=== PATIENT | female | born 1995 | race Caucasian/White ===

== ENCOUNTER 2019-10-26 15:52 | Outpatient (CLI) | payer OTHER ==
[2019-10-26 16:15] LABS: APPEARANCE,URINE CLOUDY; BILIRUBIN,URINE NEGATIVE (NEGATIVE); COLOR,URINE YELLOW; GLUCOSE, URINE NEGATIVE (NEGATIVE); KETONES,URINE NEGATIVE (NEGATIVE); LEUKOCYTE ESTERASE,URINE LARGE (NEGATIVE); NITRITE,URINE NEGATIVE (NEGATIVE); PROTEIN,URINE 30 mg/dL (NEGATIVE); URINE SPECIFIC GRAVITY 1.013; UROBILINOGEN,URINE NEGATIVE mg/dL (<2.0)
[2019-10-26 16:30] LABS: URINE AMPHETAMINES SCREEN NEGATIVE; URINE BARBITURATES SCREEN NEGATIVE; URINE BENZODIAZEPINES SCREEN NEGATIVE; URINE COCAINE SCREEN NEGATIVE; URINE MARIJUANA (THC) SCREEN NEGATIVE; URINE METHADONE SCREEN NEGATIVE; URINE PHENCYCLIDINE SCREEN NEGATIVE
--- NOTE | 2019-10-26 16:37 | Non Stress Test Report ---
Non Stress Test Datetime Report Generated by CPN: 10/26/2019 16:37 DEMOGRAPHIC EGA NST: 37.6 MONITORING Monitor Explained: Monitor Explained; Test Explained; Patient Verbalized Understanding Time on Monitor: 10/26/2019 16:05 Time off Monitor: 10/26/2019 16:25 NST Duration: 20 NST INTERVENTIONS NST Interventions: PO Hydration Physician Notified NST: J Salazar CNM BABY A: [id number] BABY A Movement : Present Contraction Frequency : 0 FHR Baseline : 130 Accelerations : 15X15 Decelerations : None Variability : Moderate 6-25bpm NST Review: Meets Criteria for Reactive NST NST Review and Verified By : Alesha Celeste RN NST Results: Reactive NST REPORT Report Trigger: Send Report
== END 2019-10-26 16:46 | disposition home or self-care (01) ==
LOC: LC 15:52
PROVIDERS: ATTEND Obstetrics & Gynecology
PROC: 4A1HXCZ Monitoring of Products of Conception, Cardiac Rate, External Approach (ICD-10-PCS; principal; 2019-10-26)
DX: O36.8130 Decreased fetal movements, third trimester, not applicable or unspecified (principal); Z3A.37 37 weeks gestation of pregnancy
CPT/HCPCS: 59025; 80307; 81005

== ENCOUNTER 2019-11-16 18:29 | Inpatient (IN) | payer OTHER ==
[2019-11-16] MEDS ORDERED: RINGERS SOLUTION,LACTATED 1,000 ML IV PRN ×2 (19:48→19:52)
[2019-11-16] MEDS ORDERED: DINOPROSTONE 10 MG VAGINAL INSERT.SR PV PRN ×2 (19:48→19:52)
[2019-11-16] MEDS ORDERED: RINGERS SOLUTION,LACTATED 300 ML IV ONE ×2 (19:48→19:52)
[2019-11-16] MEDS ORDERED: OXYTOCIN/NORMAL SALINE 1,000 ML IV PRN (19:48)
[2019-11-16] MEDS ORDERED: DINOPROSTONE 10 MG VAGINAL INSERT.SR ONE (19:52)
[2019-11-16] MEDS ORDERED: OXYTOCIN/NORMAL SALINE 20 UNIT/1,000 ML RTUINJ IV PRN (19:52)
--- NOTE | 2019-11-16 20:04 | Admission Physical ---
Datetime Report Generated by CPN: 11/16/2019 20:04 CURRENT ADMISSION Chief Complaint: Scheduled Induction of Labor Indication for Induction: Post Dates Admit Impression : Term, Intrauterine Admit Plan: Admit to Unit; Initiate Labor Induction Protocol ALLERGIES Medication Allergies: No Medication Allergies: No Known Allergies (11/16/2019) Latex: No Latex Allergies Environmental Allergies: Bees- Anaphylaxis OBSTETRICAL HISTORY EDC: 11/10/2019 00:00 : 1 Para: 0 Term: 0 : 0 SAB: 0 IAB: 0 Ectopic: 0 Livin Cesareans: 0 VBACs: 0 Multiple Births: 0 Gestational Diabetes: No Rh Sensitization: No Incompetent Cervix: No SAIRA: No Infertility: No ART Treatment: No Uterine Anomaly: No IUGR: No Hx Previous C/S: No Macrosomia: No Hx Loss/Stillborn: No PIH: No Hx : No Placenta Previa/Abruption: No Depression/PP Depression: No PTL/PROM: No Post Hemorrhage: No Current Procedures: Ultrasound Obstetrical History Comments: G-1 no complaints SEE RECORDS Alcohol: No Marijuana : No Cocaine: No Other Illicit Drugs: No Cigarettes: Never Smoker. [id number] MEDICAL HISTORY Diabetes: No Blood Transfusion: No Pulmonary Disease (Asthma, TB): No Breast Disease: No Hypertension: No Prison Psychiatrist Surgery: No Heart Disease: No Hosp/Surgery: Yes Autoimmune Disorder: No Anesthetic Complications: No Kidney Disease: No Abnormal Pap Smear: No Neuro/Epilepsy: No Psychiatric Disorders: No Other Medical Diseases: No Hepatitis/Liver Disease: No Significant Family History: No Varicosities/Phlebitis: No Trauma/Violence : No Thyroid Dysfunction: No Medical History Comments: Appendectomy- february 2018 INFECTIOUS HISTORY Gonorrhea: No Genital Herpes: No Chlamydia: No Tuberculosis: No Syphilis: No Hepatitis: No HIV/AIDS Exposure: No Rash or Viral Illness: No HPV: No PHYSICAL EXAM General: Normal HEENT: Normal Neurologic: Normal Thyroid: Normal Heart: Normal Lungs: Normal Breast: Deferred Back: Normal Abdomen: Normal Genitourinary Exam: Normal Extremities: Normal DTRs: Normal Pelvic Type: Adequate Vital Signs: Reviewed MEMBRANES Pooling: Negative Membranes: Intact FETUS A EGA: 40.6 Monitoring: External US FHR- Baseline: 130 Variability: Minimal - Undetectable to <=5bpm Decelerations: None FHR Category: Category I Presentation: Vertex PLANS FOR LABOR AND DELIVERY Labor and Delivery: None Pain Management: Medications Feeding Preference: Breast Benefit of Breast Feed Discussed: Yes Circumcision: Yes INFORMED CONSENT Signature: with User ID: [email or web address]
[2019-11-16 21:26] LABS: APPEARANCE,URINE SLIGHTLY-CLOUDY; BILIRUBIN,URINE NEGATIVE (NEGATIVE); COLOR,URINE YELLOW; GLUCOSE, URINE NEGATIVE (NEGATIVE); KETONES,URINE NEGATIVE (NEGATIVE); LEUKOCYTE ESTERASE,URINE MODERATE (NEGATIVE); NITRITE,URINE NEGATIVE (NEGATIVE); PROTEIN,URINE NEGATIVE (NEGATIVE); URINE SPECIFIC GRAVITY 1.015; UROBILINOGEN,URINE NEGATIVE mg/dL (<2.0)
[2019-11-16 21:42] LABS: HEMOGLOBIN 10.8 g/dL (12.0-15.5); MEAN CORPUSCULAR HEMOGLOBIN 33.9 pg (27.0-33.4); MEAN CORPUSCULAR HGB CONC 34.9 g/dL (32.0-36.0); MEAN CORPUSCULAR VOLUME 97 fl (80-97); PLATELET COUNT 177 10^3/uL (150-450); RED BLOOD COUNT 3.19 10^6/uL (3.72-5.28); RED CELL DISTRIBUTION WIDTH 14.5 % (11.5-14.0); WHITE BLOOD COUNT 8.2 10^3/uL (4.0-10.5)
[2019-11-16 21:46] LABS: URINE AMPHETAMINES SCREEN NEGATIVE; URINE BARBITURATES SCREEN NEGATIVE; URINE BENZODIAZEPINES SCREEN NEGATIVE; URINE COCAINE SCREEN NEGATIVE; URINE MARIJUANA (THC) SCREEN NEGATIVE; URINE METHADONE SCREEN NEGATIVE; URINE PHENCYCLIDINE SCREEN NEGATIVE
[2019-11-16 22:06] LABS: ABSOLUTE LYMPHOCYTES# (MANUAL) 1.5 10^3/uL (0.5-4.7); ABSOLUTE MONOCYTES # (MANUAL) 0.4 10^3/uL (0.1-1.4); BASOPHILS % (MANUAL) 0 % (0-2); EOSINOPHILS % (MANUAL) 2 % (0-6); LYMPHOCYTES % (MANUAL) 18 % (13-45); MONOCYTES % (MANUAL) 5 % (3-13); SEGMENTED NEUTROPHILS % (MAN) 75 % (42-78); TOTAL CELLS COUNTED 100
[2019-11-16 22:08] LABS: ANISOCYTOSIS SLIGHT; OVALOCYTES SLIGHT; PLATELET COMMENT ADEQUATE; POIKILOCYTOSIS SLIGHT
[2019-11-16] MEDS ORDERED: ZOLPIDEM TARTRATE 5 MG TABLET ONE (23:46)
[2019-11-17] MEDS ORDERED: OXYTOCIN 10 UNIT/ML VIAL ONE (10:10)
[2019-11-17] MEDS ORDERED: LIDOCAINE 1% INJ-PF (10 MG/ML) 30 ML SDV ONE (10:10)
[2019-11-17] MEDS ORDERED: MISOPROSTOL 0.2 MG TABLET ONE (10:10)
[2019-11-17] MEDS ORDERED: OXYTOCIN/NORMAL SALINE 20 UNIT/1,000 ML RTUINJ ONE (10:11)
[2019-11-17] MEDS ORDERED: PROMETHAZINE HCL INJ 25 MG/1 ML VIAL ONE (12:15)
[2019-11-17] MEDS ORDERED: FENTANYL CITRATE INJ/PF 100 MCG/2 ML AMPUL ONE ×2 (12:15→16:56)
[2019-11-17] MEDS ORDERED: FENTANYL CITRATE INJ/PF 100 MCG/2 ML AMPUL IV ONE (12:16)
[2019-11-17] MEDS ORDERED: PROMETHAZINE HCL INJ 25 MG/1 ML VIAL IV ONE (12:16)
[2019-11-17] MEDS ORDERED: BUPIVACAINE HCL 0.25 % INJ/PF (2.5 MG/1 ML) 30 ML VIAL ONE (16:52)
[2019-11-17] MEDS ORDERED: FENTANYL/BUPIVACAINE/NS/PF 300 MCG/150 ML RTUINJ EPI ONE (16:52)
[2019-11-17] MEDS ORDERED: EPHEDRINE SULFATE INJ 50 MG/1 ML AMPULE ONE (16:52)
[2019-11-18] MEDS ORDERED: FENTANYL CITRATE INJ/PF 100 MCG/2 ML AMPUL ONE (00:46)
[2019-11-18] MEDS ORDERED: LIDOCAINE 2%/EPINEPHRINE INJ 20 ML VIAL ONE (00:46)
[2019-11-18] MEDS ORDERED: LIDOCAINE 1.5%/EPINEPHRINE INJ 5 ML AMP ONE ×2 (00:47→00:48)
[2019-11-18] MEDS ORDERED: ACETAMINOPHEN 325 MG TABLET ONE (01:23)
[2019-11-18] MEDS ORDERED: ACETAMINOPHEN 325 MG TABLET PO PRN (01:48)
[2019-11-18] MEDS ORDERED: OXYTOCIN/NORMAL SALINE 20 UNIT/1,000 ML RTUINJ ONE (06:03)
[2019-11-18] MEDS ORDERED: OXYTOCIN/NORMAL SALINE 20 UNIT/1,000 ML RTUINJ IV PRN (06:51)
[2019-11-18] MEDS ORDERED: BENZOCAINE/MENTHOL AEROSOL SPRAY 56 ML TOP PRN (06:51)
[2019-11-18] MEDS ORDERED: ACETAMINOPHEN WITH CODEINE #3 TABLET PO PRN ×2 (06:51)
[2019-11-18] MEDS ORDERED: DIBUCAINE 1% OINTMENT 28 GM TP PRN (06:51)
[2019-11-18] MEDS ORDERED: ZOLPIDEM TARTRATE 5 MG TABLET PO PRN (06:51)
[2019-11-18] MEDS ORDERED: DIPH/PERTUSS(ACELL)/TETANUS VAC/PF 0.5 ML SYR (>=10YO) IM PRN (06:51)
[2019-11-18] MEDS ORDERED: IBUPROFEN 800 MG TABLET ONE (08:41)
[2019-11-18] MEDS: PRENATAL VITAMIN W DHA CAPSULE PO SCH (10:30)
[2019-11-18] MEDS: DOCUSATE SODIUM 100 MG CAPSULE PO SCH ×2 (10:30→17:41)
[2019-11-18] MEDS: SENNOSIDES/DOCUSATE 8.6-50 MG 1 EACH TABLET PO SCH (10:30)
[2019-11-18] MEDS: FERROUS SULFATE 325 MG TABLET PO SCH ×2 (10:30→17:41)
[2019-11-18] MEDS: IBUPROFEN 800 MG TABLET PO SCH ×2 (14:06→21:57)
[2019-11-19] MEDS: IBUPROFEN 800 MG TABLET PO SCH ×3 (06:13→21:20)
[2019-11-19 06:46] LABS: HEMOGLOBIN 9.1 g/dL (12.0-15.5); MEAN CORPUSCULAR HEMOGLOBIN 34.3 pg (27.0-33.4); MEAN CORPUSCULAR VOLUME 98 fl (80-97); PLATELET COUNT 135 10^3/uL (150-450); RED BLOOD COUNT 2.65 10^6/uL (3.72-5.28); RED CELL DISTRIBUTION WIDTH 14.9 % (11.5-14.0)
[2019-11-19 06:50] LABS: WHITE BLOOD COUNT 18.2 10^3/uL (4.0-10.5)
[2019-11-19] MEDS ORDERED: IRON SUCROSE COMPLEX INJ/PF 100 MG/5 ML SDV IV ONE ×2 (09:00→10:00)
[2019-11-19] MEDS: SENNOSIDES/DOCUSATE 8.6-50 MG 1 EACH TABLET PO SCH (09:21)
[2019-11-19] MEDS: PRENATAL VITAMIN W DHA CAPSULE PO SCH (09:21)
[2019-11-19] MEDS: FERROUS SULFATE 325 MG TABLET PO SCH ×2 (09:21→18:01)
[2019-11-19] MEDS: DOCUSATE SODIUM 100 MG CAPSULE PO SCH ×2 (09:21→18:01)
--- NOTE | 2019-11-19 09:36 | PDOC PROGRESS REPORT ---
Subjective-OB Progress Note for:: 11/19/19 Subjective: Pt doing well, PPD#1. She reports light bleeding, reg diet and voiding without difficulty. No concerns at this time. Physical Exam (OB) Vital Signs: Temp Pulse Resp BP Pulse Ox 97.7 F 65 16 131/65 H 98 11/19/19 08:04 11/19/19 08:04 11/19/19 08:04 11/19/19 08:04 11/19/19 08:04 Intake & Output 11/18/19 11/19/19 11/20/19 06:59 06:59 06:59 Output Total 300 Balance -300 - Lochia Lochia Amount: Scant < 10 ml Lochia Color: Rubra/Red - Abdomen Description: Soft, Round Hernia Present: No Fundal Description: Firm, Midline Fundal Height: u/u - u/2 Objective-Diagnostic Laboratory: 11/19/19 06:08 11/19/19 06:08 WBC 18.2 H D RBC 2.65 L Hgb 9.1 L Hct 26.0 L MCV 98 H MCH 34.3 H MCHC 35.0 RDW 14.9 H Plt Count 135 L Assessment and Plan(PN) - Assessment and Plan (1) Encounter for induction of labor Is this a current diagnosis for this admission?: Yes (2) Laceration, obstetrical, second degree Is this a current diagnosis for this admission?: Yes (3) Post-term , 40-42 weeks of gestation Is this a current diagnosis for this admission?: Yes (4) Vaginal delivery Is this a current diagnosis for this admission?: Yes - Time Spent with Patient Time with patient: Less than 15 minutes Medications reviewed and adjusted accordingly: Yes - Disposition Anticipated Discharge: Home Within: within 24 hours
[2019-11-20] MEDS: IBUPROFEN 800 MG TABLET PO SCH (06:54)
--- NOTE | 2019-11-20 07:39 | PDOC DISCHARGE SUMMARY ---
Impression - Admit/DC Date/PCP Admission Date/Primary Care Provider: 11/16/19 18:29 KALEB WARD MD Discharge Date: 11/20/19 - Discharge Diagnosis (1) Encounter for induction of labor Is this a current diagnosis for this admission?: Yes (2) Laceration, obstetrical, second degree Is this a current diagnosis for this admission?: Yes (3) Post-term , 40-42 weeks of gestation Is this a current diagnosis for this admission?: Yes (4) Vaginal delivery Is this a current diagnosis for this admission?: Yes - Additional Information Resuscitation Status: Full Code Discharge Diet: Regular Discharge Activity: Balance Activity w/Rest, Pelvic Rest Referrals: [facility] [Provider Group] Home Medications: Vits96/Iron Fum/Folic [ Tablet] 1 tab PO DAILY 10/26/19 Results Laboratory Results: WBC 18.2 10^3/uL (4.0-10.5) H D 11/19/19 06:08 RBC 2.65 10^6/uL (3.72-5.28) L 11/19/19 06:08 Hgb 9.1 g/dL (12.0-15.5) L 11/19/19 06:08 Hct 26.0 % (36.0-47.0) L 11/19/19 06:08 MCV 98 fl (80-97) H 11/19/19 06:08 MCH 34.3 pg (27.0-33.4) H 11/19/19 06:08 MCHC 35.0 g/dL (32.0-36.0) 11/19/19 06:08 RDW 14.9 % (11.5-14.0) H 11/19/19 06:08 Plt Count 135 10^3/uL (150-450) L 11/19/19 06:08 Lymph % (Auto) Not Reportable 11/16/19 21:22 [place] % (Auto) Not Reportable 11/16/19 21:22 Eos % (Auto) Not Reportable 11/16/19 21:22 Baso % (Auto) Not Reportable 11/16/19 21:22 Absolute Neuts (auto) Not Reportable 11/16/19 21:22 Absolute Lymphs (auto) Not Reportable 11/16/19 21:22 Absolute Monos (auto) Not Reportable 11/16/19 21:22 Absolute Eos (auto) Not Reportable 11/16/19 21:22 Absolute Basos (auto) Not Reportable 11/16/19 21: Total Counted 100 11/16/19 21:22 Seg Neutrophils % Not Reportable 11/16/19 21: Seg Neuts % (Manual) 75 % (42-78) 11/16/19 21:22 Lymphocytes % (Manual) 18 % (13-45) 11/16/19 21:22 Monocytes % (Manual) 5 % (3-13) 11/16/19 21:22 Eosinophils % (Manual) 2 % (0-6) 11/16/19 21: Basophils % (Manual) 0 % (0-2) 11/16/19 21: Abs Neuts (Manual) 6.2 10^3/uL (1.7-8.2) 11/16/19 21:22 Abs Lymphs (Manual) 1.5 10^3/uL (0.5-4.7) 11/16/19 21:22 Abs Monocytes (Manual) 0.4 10^3/uL (0.1-1.4) 11/16/19 21:22 Absolute Eos (Manual) 0.2 10^3/uL (0.0-0.6) 11/16/19 21: Abs Basophils (Manual) 0.0 10^3/uL (0.0-0.2) 11/16/19 21:22 Platelet Comment ADEQUATE 11/16/19 21:22 Poikilocytosis SLIGHT 11/16/19 21:22 Anisocytosis SLIGHT 11/16/19 21:22 Ovalocytes SLIGHT 11/16/19 21:22 Urine Color YELLOW 11/16/19 19:56 Urine Appearance SLIGHTLY-CLOUDY 11/16/19 19:56 Urine pH 6.0 (5.0-9.0) 11/16/19 19:56 Ur Specific [place] 1.015 11/16/19 19:56 Urine Protein NEGATIVE mg/dL (NEGATIVE) 11/16/19 19:56 Urine Glucose (UA) NEGATIVE mg/dL (NEGATIVE) 11/16/19 19:56 Urine Ketones NEGATIVE mg/dL (NEGATIVE) 11/16/19 19:56 Urine Blood NEGATIVE (NEGATIVE) 02/18/20 19:56 Urine Nitrite NEGATIVE (NEGATIVE) 11/16/19 19:56 Urine Bilirubin NEGATIVE (NEGATIVE) 11/16/19 19:56 Urine Urobilinogen NEGATIVE mg/dL (<2.0) 11/16/19 19:56 Ur Leukocyte Esterase MODERATE (NEGATIVE) H 11/16/19 19:56 Urine Ascorbic Acid NEGATIVE (NEGATIVE) 11/16/19 19:56 Urine Opiates Screen NEGATIVE 11/16/19 19:56 Urine Methadone Screen NEGATIVE 11/16/19 19:56 Ur Barbiturates Screen NEGATIVE 11/16/19 19:56 Ur Phencyclidine Scrn NEGATIVE 11/16/19 19:56 Ur Amphetamines Screen NEGATIVE 11/16/19 19:56 U Benzodiazepines Scrn NEGATIVE 11/16/19 19:56 Urine Cocaine Screen NEGATIVE 11/16/19 19:56 U Marijuana (THC) Screen NEGATIVE 11/16/19 19:56 RPR NONREACTIVE (NONREACTIVE) 11/16/19 21:22 Blood Type O POSITIVE 11/16/19 21:22 Antibody Screen NEGATIVE 11/16/19 21:22
[2019-11-20] MEDS: PRENATAL VITAMIN W DHA CAPSULE PO SCH (09:04)
[2019-11-20] MEDS: SENNOSIDES/DOCUSATE 8.6-50 MG 1 EACH TABLET PO SCH (09:04)
[2019-11-20] MEDS: DOCUSATE SODIUM 100 MG CAPSULE PO SCH (09:04)
[2019-11-20] MEDS: FERROUS SULFATE 325 MG TABLET PO SCH (09:05)
[2019-11-20 10:58] VITALS: BP 139/78
--- NOTE | 2019-11-24 08:59 | Delivery Summary ---
Del Sum A-C Datetime Report Generated by CPN: 11/24/2019 08:59 DELIVERY PERSONNEL DELIVERY PERSONNEL: [id number] Delivery Doctor:: Nicky Jewell MD Labor and Delivery Nurse:: Portia Heart RNladder operator Nurse:: Charbel Arriaga RN Nursery Nurse:: Indira Gee RN Nursery Nurse:: Es Wong RN Crozer/3D DESIGNER: Shari Colon, ST MATERNAL INFORMATION Delivery Anesthesia: Epidural Medications After Delivery: Pitocin Bolus-Please Comment Meds After Delivery Comment: Pitocin 20 units/1000 ml NSS Delivery QBL: 200 Maternal Complications: Maternal Fever Provider Comments: of a viable male at 0612 w/ an ERNST w/nuchal cord x 1 presentation; APGARS pending; 2nd deg midline vag lac LABOR SUMMARY EDC: 11/10/2019 00:00 No. Babies in Womb: 1 Attempted: No Labor Anesthesia: Epidural LABOR INFORMATION Reason for Induction: Post Dates Onset of Labor: 11/17/2019 14:45 Complete Dilatation: 11/18/2019 05:30 Cervical Ripening Agents: Cervidil; Leon Balloon Cervical Ripening Agents: Leon Balloon Cervical Ripening Agents: Cervidil Cervical Ripening Agents: Cervidil Oxytocin: Augmentation Group B Beta Strep: NEGATIVE Antibiotics # of Doses: 0 Steroids Given: None Reason Steroids Not Administered: Not Applicable MEMBRANES Membranes Rupture Method: Spontaneous Rupture of Membranes: 11/17/2019 14:40 Length of Rupture (hr): 15.53 Amniotic Fluid Color: Clear Amniotic Fluid Amount: Large Amniotic Fluid Odor: Normal STAGES OF LABOR Stage 1 hr: 14 Stage 1 min: 45 Stage 2 hr: 0 Stage 2 min: 42 Stage 3 hr: 0 Stage 3 min: 4 Total Time in Labor hr: 15 Total Time in Labor min: 31 VAGINAL DELIVERY Episiotomy: None Laceration #1: Vaginal Laceration Extension #1: Second Degree Laceration Repair: Yes Laceration Repair Note: 2nd degree midline vaginal lac repaired w/2-0 Chromic Sponge Count Correct: Yes Sharps Count Correct: Yes CSECTION DELIVERY Primary Indication: N/A Secondary Indication: N/A CSection Incidence: N/A Labor: N/A Elective: N/A CSection Incision: N/A Uterine Closure: Double-layer closure BABY A INFORMATION Infant Delivery Date/Time: 11/18/2019 06:12 Method of Delivery: Vaginal Method of Delivery: Vaginal Nurse Controlled Delivery: No Born in Route : No : N/A Forceps: N/A Vacuum Extraction: N/A Shoulder Dystocia : No PRESENTATION/POSITION BABY A Presentation: Cephalic Cephalic Presentation: Vertex Vertex Position: Right Occipital Anterior Breech Presentation: N/A PLACENTA INFORMATION BABY A Placenta Delivery Time : 11/18/2019 06:16 Placenta Method of Delivery: Spontaneous Placenta Method of Delivery: Spontaneous Placenta Status: Delivered SCORES BABY A Heart Rate 1 min: >100 bpm Resp Effort 1 min: Absent Reflex Irritability 1 min: No Response Muscle Tone 1 min: Flaccid Color 1 min: Blue/Pale Resuscitation Effort 1 min: Tactile Stimulation; Oxygen; PPV/NCPAP SCORE 1 MIN: 2 Heart Rate 5 min: >100 bpm Resp Effort 5 min: Good Cry Reflex Irritability 5 min: [place] Muscle Tone 5 min: Some Flexion of Extremities Color 5 min: Body [place], Extremities Blue Resuscitation Effort 5 min: Tactile Stimulation SCORE 5 MIN: 7 Heart Rate 10 min: >100 bpm Resp Effort 10 min: Good Cry Reflex Irritability 10 min: Cough or Sneeze or Pulls Away Muscle Tone 10 min: Some Flexion of Extremities Color 10 min: Completely [place] SCORE 10 MIN: 9 INFANT INFORMATION BABY A Gestational Age at Delivery: 41.1 Gestational Status: Late Term- 41- 41.6 Weeks Infant Outcome : Liveborn Condition : Stable Infant Sex: Male Infant Sex: Male IDENTIFICATION BABY A Infant Verification Date/Time: 11/18/2019 06:25 ID Band Number: [id number] Mother's Name Verified: Yes RN Verifying Infant: Hannah Heart RN Additional Verifying Personnel: L. Parandi, DIETARY AID CORD INFORMATION BABY A No. Cord Vessels: 3 Nuchal Cord : Around Neck x1, Loose Cord Blood Taken: Yes-For Eval (Mom's Blood Type - or O+) Infant Suction: None; Mouth ASSESSMENT BABY A Skin to Skin: Yes BABY B INFORMATION : N/A SIGNATURES Signature: with User ID: [email or web address]
== END 2019-11-20 13:06 | disposition home or self-care (01) | DRG 806 ==
LOC: LR 18:29 → 2S 11-18 09:22
PROVIDERS: ADMIT Obstetrics & Gynecology; ATTEND Obstetrics & Gynecology
PROC: 3E0P7VZ Introduction of Hormone into Female Reproductive, Via Natural or Artificial Opening (ICD-10-PCS; 2019-11-17)
PROC: 10E0XZZ Delivery of Products of Conception, External Approach (ICD-10-PCS; principal; 2019-11-18)
PROC: 0KQM0ZZ Repair Perineum Muscle, Open Approach (ICD-10-PCS; 2019-11-18)
DX: O48.0 Post-term pregnancy (principal); O75.2 Pyrexia during labor, not elsewhere classified; Z37.0 Single live birth; O70.1 Second degree perineal laceration during delivery; O69.81X0 Labor and delivery complicated by cord around neck, without compression, not applicable or unspecified; Z91.030 Bee allergy status; Z3A.41 41 weeks gestation of pregnancy
CPT/HCPCS: 36415; 80307; 81005; 85025; 85027; 86592; 86850; 86900; 86901; 94760; 99465; J1756; J2550; J2590; J3010; J3490